=== PATIENT | male | born 1980 | race Caucasian/White ===

== ENCOUNTER 2024-02-21 07:37 | Day surgery (SDC) | payer BC, OTHER ==
[~2024-02-21] VITALS: Ht 177.8 cm; Wt 127.3 kg
[2024-02-21] VITALS (9 sets, daily range): BP systolic 110–159; BP diastolic 60–87; PULSE 57–82; RESP 14–17; O2SAT 95–96
[~2024-02-21 07:37] MED LIST: ATOR40TA71 PO; LOSA50TA64; SERT20OR PO
[2024-02-21] MEDS ORDERED: LIDOcaine 2% (20mg/ml) 5ml vial ONE (09:25)
[2024-02-21] MEDS ORDERED: MIDAZolam 1mg/ml 10ml vial ONE (09:25)
[2024-02-21] MEDS ORDERED: propofol inj 20 ML IV ONE (09:25)
[2024-02-21] MEDS ORDERED: fentaNYL/PF 50MCG/1 ML 2ML syringe ONE (09:25)
[2024-02-21] MEDS ORDERED: simethicone 40mg/0.6ml oral drops 30ml ONE (09:33)
[2024-02-21] MEDS ORDERED: diphenhydrAMINE 50 mg/ml inj ONE (09:33)
[2024-02-21] MEDS ORDERED: flumazenil 0.1 mg/ml inj. 10mL vial IV ONE (09:52)
[2024-02-21] MEDS ORDERED: hydrALAZINE 20mg/ml inj. IV ONE (09:52)
== END 2024-02-21 10:57 | disposition home or self-care (01) ==
LOC: GI LAB 07:37
PROVIDERS: ATTEND Internal Medicine Gastroenterology
DX: Z12.11 Encounter for screening for malignant neoplasm of colon (principal); I10 Essential (primary) hypertension; F41.9 Anxiety disorder, unspecified
CPT/HCPCS: 45378; J0360; J1200; J2250; J2704; J3010; J3490; J7030; Z7512; A4620